=== PATIENT | male | born 1990 | race Caucasian/White ===

== ENCOUNTER 2017-10-28 08:15 | Inpatient (IN) ==
[2017-10-28] MEDS ORDERED: Chlorhexidine Gluconate 2% 1 Pack (2 Cloths) TOPICAL ONE (13:40)
[2017-10-28] MEDS ORDERED: Metoprolol Tartrate 25 MG Tablet PO ONE (13:40)
[2017-10-28] MEDS ORDERED: fentaNYL Citrate Inj 250 MCG/5 ML Ampul ONE (13:56)
[2017-10-28] MEDS ORDERED: Sodium Chlor 0.9% Inj 500 ML IV.SIG SCH (14:00)
[2017-10-28] MEDS ORDERED: Bupivacaine/Epinephrine Inj 0.25% 50 ML Vial ONE ×2 (15:09→16:59)
[2017-10-28] MEDS ORDERED: Piperacil/Tazo 3.375 GM Premix 50 ML IV.SIG ONE (17:15)
[2017-10-28] MEDS ORDERED: Bisacodyl 10 MG Supp RECTAL PRN (17:59)
[2017-10-28] MEDS ORDERED: Promethazine 25 MG Supp RECTAL PRN (17:59)
[2017-10-28] MEDS ORDERED: Post-op Orders (for Pharmacy) OTHER ONE (17:59)
[2017-10-28] MEDS ORDERED: *morphine SULFATE 4 MG/ML PERIprocedure ONLY ONE ×2 (18:25→18:50)
[2017-10-28] MEDS: Sod Chloride 0.9% Inj 1,000 ML IV.CONT SCH (18:30)
--- NOTE | 2017-10-28 18:31 | P.OP ---
- Preoperative Diagnosis (1) Acute appendicitis - Postoperative Diagnosis (1) Acute appendicitis Date of procedure: 10/28/17 Procedure: lap appy Anesthesia: GETA Surgeon: Ricardo Serrato MD Estimated blood loss (mL): 5 Pathology: other (appendix) Operation and Findings: non perf appy, inflamed
[2017-10-28] MEDS ORDERED: Ketorolac Inj 30 MG/ML (IVP) Vial IV.PUSH PRN (19:00)
[2017-10-28] MEDS ORDERED: Morphine Sulfate Inj 2 MG/ML Vial IV.PUSH PRN (19:00)
[2017-10-28] MEDS: Senna/Docusate Sodium 8.6/50 MG Tablet PO SCH (20:20)
[2017-10-28] MEDS: Piperacil/Tazo 3.375 GM Premix 50 ML IV.SIG SCH (20:21)
--- NOTE | 2017-10-28 23:40 | MH ---
cc: Ricardo Serrato MD DATE OF ADMISSION: 10/28/2017 CHIEF COMPLAINT: Abdominal pain, acute appendicitis. HISTORY OF PRESENT ILLNESS: The patient is a 27-year-old male who presents with an acute onset of abdominal pain. He states the pain has been going on for several days; however, acutely got worse and significant in severity. The patient came to the emergency department in [place] with further workup including leukocytosis and a CT scan showing acute appendicitis. Therefore, he was transferred to [place] for definitive management. The patient denies any fevers or chills. He states the pain is a 10/10 and severe and sharp. It is located in the right lower quadrant. He has never had pain quite like this before. He states he has associated nausea but denies vomiting. PAST MEDICAL HISTORY: The patient has no medical history. PAST SURGICAL HISTORY: The patient denies surgeries. ALLERGIES: NO KNOWN ALLERGIES. MEDICATIONS: See EMR. SOCIAL HISTORY: Denies smoking, ETOH or IVDA. FAMILY HISTORY: Denies diabetes or hypertension. REVIEW OF SYSTEMS: GENERAL: Denies fevers or chills. HEENT: Denies eye pain, ear pain. NECK: Denies swelling or pain. LUNG: Denies cough or wheeze. HEART: Denies palpitations or chest pain. ABDOMEN: Complains of nausea. Denies vomiting. Complains of abdominal pain. GENITOURINARY: Denies dysuria or hematuria. ENDOCRINE: Denies polyuria or polydipsia. INTEGUMENT: Denies any rashes or lesions. NEUROLOGIC: Denies numbness or tingling. PSYCHIATRIC: Denies changes in mood or sensorium. PHYSICAL EXAMINATION: GENERAL: The patient is in no acute distress. VITAL SIGNS: Temperature 97.5, pulse 79, respirations 15, blood pressure 117/71, saturation 96%. HEENT: Pupils equal, round and reactive. NECK: Supple. Trachea midline. LUNGS: Clear to auscultation bilaterally with equal expansion. HEART: S1, S2. Regular rhythm. ABDOMEN: Soft. Positive tenderness to palpation in right lower quadrant. Positive rebound. EXTREMITIES: Warm and perfused. NEUROLOGIC: GCS is 15. He has 5/5 motor in all extremities. PSYCHIATRIC: Appropriate mood, appropriate insight. LABORATORY AND DIAGNOSTIC DATA: WBC 8.2, hemoglobin 13.7, hematocrit 39.5, platelets 152. Sodium 142, potassium 4.4, chloride 104, BUN 14, creatinine 0.9, AST 11, ALT 28. A CT scan reviewed by myself is showing acute appendicitis with induration and inflammation around the appendix. No evidence of free fluid or free intraperitoneal air. ASSESSMENT: The patient is a 27-year-old male with acute appendicitis. PLAN: After a full clinical and radiological workup, the patient has the above medical issues. At this point, the patient has acute appendicitis. We will plan for operative intervention including a laparoscopic appendectomy. I discussed the surgery with the patient in detail. He understands and agrees and would like to proceed. MD MAGDY Alvarez/geovanny , 09:54 PM , 10:03 PM
--- NOTE | 2017-10-29 00:22 | MP ---
cc: Ricardo Serrato MD DATE OF OPERATION: 10/28/2017 PREOPERATIVE DIAGNOSIS: Acute appendicitis. POSTOPERATIVE DIAGNOSIS: Acute appendicitis. PROCEDURE PERFORMED: Laparoscopic appendectomy. SURGEON: Ricardo Serrato MD SCIENCE MANAGER: See OR sheet. ANESTHESIA: GETA. IV FLUIDS: See anesthesia sheet. ESTIMATED BLOOD LOSS: 5 mL. DRAINS: None. COMPLICATIONS: None: WOUND CLASSIFICATION: Clean/contaminated. SPECIMENS: Appendix. FINDINGS: Distended, inflamed appendix, no perforation. INDICATIONS FOR PROCEDURE: This is a 27-year-old male who presents with acute onset of abdominal pain. The patient had CT scan showing acute appendicitis; therefore, it was planned for a laparoscopic appendectomy. DETAILS OF PROCEDURE: The patient was taken to the operating suite, placed in the supine position. He was prepped and draped in the usual sterile fashion after induction of general endotracheal anesthesia. A brief timeout was done stating correct patient, procedure and surgical site. We were all in agreement with this. Attention was directed to the umbilicus where a stab andrea incision was made with a 15 blade after injection of local anesthetic. A 5 mm Skydeck Optiview camera was used to enter the abdomen safely. On cursory inspection, no evidence of injury. Abdomen was insufflated to 15 mm of pneumoperitoneum. The patient was placed in Trendelenburg, airplaned to the left. Two other trocars were placed, including a left lower quadrant 12 mm and a suprapubic 5 mm trocar. The right lower quadrant was examined and identification of the appendix was noted. Adhesions were mobilized and taken down. The appendix was grasped at the base and a window was made in the base of the mesoappendix. This was done with electric Bovie electrocautery and a [place] grasper. Further dissection was done to create the window. The Endo-ARSALAN was used to transect the base of the mesoappendix. The appendix was placed in appendiceal EndoCatch bag and removed from the abdomen and 4 x 4 was used for hemostasis along with electric Bovie cautery. The abdomen was desufflated, trocars were removed. The left lower quadrant trocar was closed with 0 Vicryl [id number] and 4-0 Monocryl was used at all subcuticular sutures for closure of the port sites. Sterile dressings were placed including Mastisol and Steri-Strips. The patient tolerated the procedure well. No intraoperative complications. All lap and needle counts were correct at the end of the procedure. The patient was extubated and taken stable to the PACU. MD MAGDY Alvarez/sydnie , 08:00 PM , 08:08 PM
[2017-10-29] MEDS: Piperacil/Tazo 3.375 GM Premix 50 ML IV.SIG SCH ×2 (03:59→10:00)
[2017-10-29] MEDS: Sod Chloride 0.9% Inj 1,000 ML IV.CONT SCH (04:01)
[2017-10-29 09:24] VITALS: RESP 17
[2017-10-29] MEDS: Senna/Docusate Sodium 8.6/50 MG Tablet PO SCH (09:57)
--- NOTE | 2017-10-29 10:58 | P.PNGS ---
Subjective Patient reports: feels better, pain is less, tolerating liquids well Physical Exam Vital signs: Vital Signs 10/28/17 17:55 10/28/17 18:00 10/28/17 18:15 Temperature 98.4 F Pulse Rate 71 69 65 Respiratory Rate 14 15 15 Blood Pressure 121/68 118/70 130/80 Pulse Oximetry 100 100 98 10/28/17 18:30 10/28/17 18:45 10/28/17 19:15 Temperature 97.5 F L Pulse Rate 72 74 79 Respiratory Rate 15 13 15 Blood Pressure 130/82 124/75 117/71 Pulse Oximetry 100 100 96 10/28/17 20:16 10/29/17 00:19 10/29/17 04:29 Temperature 97.2 F L 98.2 F 98.2 F Pulse Rate 79 78 84 Respiratory Rate 16 17 18 Blood Pressure 128/64 100/56 L 99/55 L Pulse Oximetry 99 96 96 10/29/17 08:00 Temperature 97.4 F L Pulse Rate 81 Respiratory Rate 17 Blood Pressure 122/72 Pulse Oximetry 98 Intake & Output 10/28/17 10/29/17 10/29/17 18:59 06:59 18:59 Intake Total 1580 / 1580 450 / 450 Output Total 800 / 800 Balance 780 / 780 450 / 450 Weight 83.7 kg 82 kg Intake: IV 1100 / 1100 450 / 450 NS Inj 1,000 ML @ 100 mls/hr IV 1000 / 1000 400 / 400 .CONT .Q10H [facility] Rx#:[id number] Zosyn 3.375 GM Premix 50 ML @ 100 / 100 50 / 50 100 mls/hr IV.SIG Q8H [facility] Rx#: [id number] Oral 480 / 480 Output: Urine 800 / 800 Other: Date of Last Bowel Movement 10/28/17 - Routine Abdominal Exam Present: soft (incisional tenderness) Assessment and Plan - Plan POD 1 Lap appy PLAN Advance diet pain control po oob dvt ppx IS d/c home today
[2017-10-29 12:58] VITALS: BP 110/64; PULSE 76; TEMP 98.3; O2SAT 100
--- NOTE | 2017-10-29 14:09 | P.DS ---
Date of admission: 10/28/17 17:59 Primary care physician: UNKNOWN Attending physician on discharge: Ricardo Serrato Anticipated date of discharge: 10/29/17 Brief History from admission: 27 year old POD1 lap appy DS: Diagnosis - Discharge Diagnosis (1) Acute appendicitis Status: Acute DS: Summary Hospital Course: This is a 27 year old male POD1 laparoscopic appendectomy. He was able to tolerate a regular diet. His pain was controlled using oral pain medications. He was able to ambulate independently. He was provided a prescription for pain medications as well as a work excuse note. He will follow up in the office. - Time Spent with Patient Total time spent providing and/or coordinating discharge services: Less than 30 minutes - Quality: VTE Deep Vein Thrombosis/Pulmonary Embolism Present on Admission: No Exam Vital signs: Vital Signs 10/28/17 17:55 10/28/17 18:00 10/28/17 18:15 Temperature 98.4 F Pulse Rate 71 69 65 Respiratory Rate 14 15 15 Blood Pressure 121/68 118/70 130/80 Pulse Oximetry 100 100 98 10/28/17 18:30 10/28/17 18:45 10/28/17 19:15 Temperature 97.5 F L Pulse Rate 72 74 79 Respiratory Rate 15 13 15 Blood Pressure 130/82 124/75 117/71 Pulse Oximetry 100 100 96 10/28/17 20:16 10/29/17 00:19 10/29/17 04:29 Temperature 97.2 F L 98.2 F 98.2 F Pulse Rate 79 78 84 Respiratory Rate 16 17 18 Blood Pressure 128/64 100/56 L 99/55 L Pulse Oximetry 99 96 96 10/29/17 08:00 10/29/17 12:00 Temperature 97.4 F L 98.3 F Pulse Rate 81 76 Respiratory Rate 17 17 Blood Pressure 122/72 110/64 Pulse Oximetry 98 100 Intake & Output 10/28/17 10/29/17 10/29/17 18:59 06:59 18:59 Intake Total 1580 / 1580 450 / 450 Output Total 800 / 800 Balance 780 / 780 450 / 450 Weight 83.7 kg 82 kg Intake: IV 1100 / 1100 450 / 450 NS Inj 1,000 ML @ 100 mls/hr IV 1000 / 1000 400 / 400 .CONT .Q10H [facility] Rx#:[id number] Zosyn 3.375 GM Premix 50 ML @ 100 / 100 50 / 50 100 mls/hr IV.SIG Q8H [facility] Rx#: [id number] Oral 480 / 480 Output: Urine 800 / 800 Other: Date of Last Bowel Movement 10/28/17 Narrative: Alert and awake Abd: soft; mildly tender to palpation; lap sites c/d/i Results Procedures completed during hospitalization: Laparoscopic appendectomy Discharge Plan - Discharge Disposition Patient Disposition: 01 Discharge Home - Discharge Condition Condition: Good - Discharge Order Discharge Orders: Discharge Order (Routine); Ordered 10/29/17 Ordered By: Ricardo Serrato - Discharge Details Anticipated Discharge Date: 10/29/17 Discharge Comment: rx on chart - Physicians Team Primary Care Provider: UNKNOWN, Attending Provider: Ricardo Serrato Other Providers: Surgeons,[facility] ; [employer],Insurance - Rxs /Orders / Referrals /Forms Prescriptions: No Action No Known Home Medications Referrals: Ricardo Serrato MD [Physician] - 11/08/17 9:50 am (Appt set for SaturdayNov 08 at 9:50AM) UNKNOWN, [Primary Care Provider] - See Instructions (CALL [phone] 8AM THE DAY YOU LIKE TO BE SEEN. [id number],[place] [address]) Forms: Work Release/Restrictions - Discharge Instructions Patient Printed Instructions: Pain Management After Surgery (DC), Laparoscopic Appendectomy (DC), Acute Wound Care (DC)
[2017-10-29] MEDS ORDERED: Ketorolac Inj 30 MG/ML (IVP) Vial IV.PUSH ONE (16:45)
[2017-10-29] MEDS ORDERED: Lidocaine PF 1% Inj 5 ML Syringe OTHER ONE (16:45)
[2017-10-29] MEDS ORDERED: Glycopyrrolate Inj 1 MG/5 ML Syringe IV.PUSH ONE (16:45)
== END 2017-10-29 15:50 | disposition home or self-care (01) ==
LOC: NEDDLT 08:15 → HSDI 08:15 → N07 19:41
PROVIDERS: ADMIT Surgery; ATTEND Surgery
PROC: LAPAPPY (ICD-10-PCS; 2017-10-28 16:38)